=== PATIENT | male | born 1970 | race Caucasian/White ===

== ENCOUNTER 2016-10-15 23:53 | Emergency (ER) | payer OTHER ==
[~2016-10-15] VITALS: Ht 188 cm; Wt 77.1 kg
--- NOTE | ~2016-10-15 | CR142 ---
[facility] A Service [facility] RADIOLOGY TEXT RESULTS PATIENT: ANAIS WEN LOCATION: SED : 70 UNIT #: [id number] AGE: [address]: Negar Stevens SEX: M ORDER DR: [id number] [place] [id number] E MR#: [id number] Acc #: [id number] NAME: ANAIS WEN. : 1970 SEX: M STUDY DATE/TIME: 10/16/2016 0:39 UNIT: SED ROOM: STUDY DESCRIPTION: CR Hand Min 3 Views Rt Attending Physician: Negar Stevens Pa-C Ordering Physician: Physician Non-Staff Primary Care Physician: No Primary Care Physician MEDICAL IMAGING REPORT This report is preliminary unless electronic signature is present. EXAM Right hand series 10/16/2016 HISTORY 46-year-old male in the ED with severe right hand swelling and inflammation reportedly after needle stick 3 days prior. Suspected infection. TECHNIQUE Three-view right hand series. FINDINGS The exam shows profound soft tissue swelling over the dorsal aspect of the hand and wrist. There is no visible soft tissue gas or radiopaque soft tissue foreign body. Osseous structures of the hand and wrist appear negative. IMPRESSION Severe soft tissue swelling is noted. The examination is otherwise negative. Dictated by... Durga Claire M.D. THIS IS AN ELECTRONICALLY VERIFIED REPORT Durga Claire M.D. at 10/16/2016 9:45 PM RGW/df TD: 10/16/2016 09:41 JOB #: [id number] MEDICAL IMAGING REPORT [facility] A Service [facility] RADIOLOGY TEXT RESULTS PATIENT: ANAIS WEN LOCATION: SED : 70 UNIT #: [id number] AGE: [address]: Negar Stevens SEX: M ORDER DR: Page 1 of 1
[~2016-10-15 23:53] MED LIST: ANUCORT-HC25 MG/SUPP PR; ANUSOL-HC CREAM30 GM TOP; FLEXERIL10 MG PO; LORTAB 7.5-5001 TAB PO; NAPROXEN PO; NO MEDICATIONS; PERCOCET 10-651 EACH PO; PERCOCET PO; VICODIN 5/1 TAB 5/50 DOB; VICODIN 5/1 TAB 5/50 PO; VICODIN 5/500 T1 TAB PO
[2016-10-15] MEDS ORDERED: FLEXERIL10 MG PO (23:58)
[2016-10-16 00:56] LABS: BASOPHIL% 0.3 % (0-2.5); EOSINOPHIL# 0.1 X10e3 (0-0.7); EOSINOPHIL% 0.8 % (0.0-7.0); HEMATOCRIT 34.5 % (38.0-50.0); HEMOGLOBIN 11.7 gm/dL (13.0-16.0); LYMPHOCYTE# 1.6 X10e3 (1.0-3.5); LYMPHOCYTE% 12.8 % (17.0-45.0); MEAN CELL VOLUME 91.1 FL (83-96); MEAN PLATELET VOLUME 9.2 FL (6.5-11.5); MONOCYTE# 1.2 X10e3 (0-1.0); MONOCYTE% 10.1 % (3.0-12.0); NEUTROPHIL# 9.4 X10e3 (1.5-7.1); PLATELET COUNT 275 X10e3 (140-420); RED BLOOD COUNT 3.79 X10e (3.90-5.60); RED CELL DISTRIBUTION WIDTH 13.7 % (11.0-15.5); WHITE BLOOD COUNT 12.3 X10e3 (4.0-10.5)
[2016-10-16 00:59] LABS: DIFF IND NO
[2016-10-16 01:10] LABS: ALBUMIN SERUM 3.9 g/dL (3.5-5.0); BILIRUBIN,TOTAL 0.5 mg/dL (0.2-2.0); BUN/CREATININE RATIO 27.77; CALCIUM SERUM 8.4 mg/dL (8.4-10.2); CREATININE SERUM 0.9 mg/dL (0.6-1.4); GLOM FILT RATE Estimated 102.1 mL/min (>60); POTASSIUM 3.6 mmol/L (3.5-5.1); PROTEIN TOTAL SERUM 7.8 g/dL (6.0-8.3)
== END 2016-10-16 02:34 ==
LOC: SED 23:53
PROVIDERS: Physician Assistant
DX: L03.113 Cellulitis of right upper limb (principal)
CPT/HCPCS: 36415; 73130; 80053; 85025; 96365; 99284